=== PATIENT | female | born 1980 | race Caucasian/White ===

== ENCOUNTER 2017-08-22 05:22 | Emergency (ER) | payer OTHER ==
[2017-08-22 06:04] LABS: #Basophils 0.1 thou/uL (0.0-0.2); #Eosinphils 0.7 thou/uL (0.0-0.7); #Lymphocytes 2.2 thou/uL (1.20-3.40); #Monocytes 0.6 thou/uL (0.11-0.59); #Neutrophils 4.5 thou/uL (1.40-6.50); %Basophils 0.8 % (0.0-1.0); %Eosinophils 9.2 % (0.0-10.0); %Lymphocytes 27.7 % (21.0-51.0); %Monocytes 7.1 % (0.0-10.0); Hematocrit 36.1 % (36.0-47.0); Mean Platelet Volume 7.3 fL (7.4-10.4); White Blood Cell (WBC) Count 8.1 thou/uL (4.8-10.8)
[2017-08-22 06:23] LABS: Anion Gap 10 mmol/L (10-20); BUN (Urea Nitrogen) 16 mg/dL (7.0-18.7); Calc. Creatinine Clearance 0 mL/min (70-130); Calcium 9.3 mg/dL (7.8-10.44); Carbon Dioxide 26 mmol/L (22-29); Estimated GFR-MDRD 90
[2017-08-22 06:32] LABS: Chloride 107 mmol/L (98-107)
== END 2017-08-22 07:33 | disposition home or self-care (01) ==
LOC: ERS 05:22
DX: T81.31XA Disruption of external operation (surgical) wound, not elsewhere classified, initial encounter (principal); E03.9 Hypothyroidism, unspecified; I10 Essential (primary) hypertension; F42.9 Obsessive-compulsive disorder, unspecified; F17.210 Nicotine dependence, cigarettes, uncomplicated; Z79.891 Long term (current) use of opiate analgesic; Z79.899 Other long term (current) drug therapy
CPT/HCPCS: 36415; 80048; 85025; 86850; 86900; 86901

== ENCOUNTER 2017-08-22 15:14 | Emergency (ER) | payer OTHER | END 2017-08-22 17:13 | disposition home or self-care (01) | LOC: ERS 15:14 | DX: T81.31XA Disruption of external operation (surgical) wound, not elsewhere classified, initial encounter (principal); I34.1 Nonrheumatic mitral (valve) prolapse; I10 Essential (primary) hypertension; E03.9 Hypothyroidism, unspecified; F42.9 Obsessive-compulsive disorder, unspecified; F17.210 Nicotine dependence, cigarettes, uncomplicated | CPT/HCPCS: 36415; 80048; 85025; 86850; 86900; 86901; 87070; 87205; 99283; 99406 ==

== ENCOUNTER 2017-08-24 09:45 | Emergency (ER) | payer OTHER ==
[2017-08-24 10:42] LABS: #Eosinphils 0.2 thou/uL (0.0-0.7); #Lymphocytes 0.5 thou/uL (1.20-3.40); #Monocytes 0.4 thou/uL (0.11-0.59); %Basophils 0.2 % (0.0-1.0); %Eosinophils 1.6 % (0.0-10.0); %Lymphocytes 3.8 % (21.0-51.0); %Monocytes 3.1 % (0.0-10.0); Hematocrit 37.2 % (36.0-47.0); Mean Platelet Volume 6.7 fL (7.4-10.4); Red Blood Cell (RBC) Count 3.86 mill/uL (4.20-5.40); White Blood Cell (WBC) Count 14.2 thou/uL (4.8-10.8)
[2017-08-24 10:57] LABS: Lactic Acid - Sepsis 1.2 mmol/L (0.5-2.2)
[2017-08-24 11:03] LABS: ALT (SGPT) 14 U/L (8-55); AST (SGOT) 13 U/L (5-34); Alkaline Phosphatase 64 U/L (40-150); Anion Gap 11 mmol/L (10-20); BUN (Urea Nitrogen) 14 mg/dL (7.0-18.7); Bilirubin, Total 0.5 mg/dL (0.2-1.2); Calc. Creatinine Clearance 0 mL/min (70-130); Calcium 9.1 mg/dL (7.8-10.44); Carbon Dioxide 23 mmol/L (22-29); Chloride 104 mmol/L (98-107); Estimated GFR-MDRD 84; Globulin 2.6 g/dL (2.4-3.5); Protein, Total 6.9 g/dL (6.0-8.3)
--- NOTE | 2017-08-24 11:35 | RAD ---
PORTABLE CHEST 1 VIEW: Date: 08/24/17 Time: 1126 hours HISTORY: wound evaluation, fever. FINDINGS: The heart size is normal. The lungs are expanded and clear. Bony thorax unremarkable. IMPRESSION: Normal exam. POS: C
[2017-08-24] MEDS ORDERED: Acetaminophen 500 MG TAB ONE (11:59)
[2017-08-24 12:15] LABS: Bilirubin Negative (Negative); Blood, Urine Negative (Negative); Glucose, Urine (Dipstick) Negative (Negative); Ketone, Urine Negative (Negative); Nitrite Negative (Negative); Protein, Urine (Dipstick) Negative (Neg-Trace); Urobilinogen 0.2 mg/dL (0.2-1.0)
== END 2017-08-24 14:43 | disposition home or self-care (01) ==
LOC: ERS 09:45
DX: B34.9 Viral infection, unspecified (principal)
CPT/HCPCS: 71010; 80053; 81003; 83605; 85025; 87040; 87070; 87077; 87086; 87186; 87205; 93005; 96360

== ENCOUNTER 2017-09-09 10:32 | Outpatient (CLI) | payer OTHER ==
--- NOTE | 2017-09-09 18:07 | HP ---
DATE OF SERVICE: 09/09/2017 HISTORY OF PRESENT ILLNESS: Ms. Kathryn Tovar is a very pleasant 37-year-old who [facility] evaluation of a wound of the right axilla subsequent to pectoralis minor tenotom y for treatment of thoracic outlet syndrome. The patient states she underwent the preceding procedur e by Dr. Wood in [place], [place]. The patient states that the wound edges at the time of surgery were approximated with surgical glue. She states that on 08/22/2017, she noted rupture of the surgical i ncision with the copious drainage of serosanguineous fluid. She states that at this time a dehiscenc e of the surgical incision was noted. The patient has been performing dressing changes of iodoform g auze for her right axillary wound. Today, the patient complains of irritation of the periwound from drainage associated with her wound. The patient states that 2 days after [place] of last year, she was admitted to [facility] where she remained for 3-4 days. She states that at this time MRSA was c ultured from her wound. PAST MEDICAL HISTORY: 1. Mitral valve prolapse. 2. Osteoarthritis. 3. Dwayne's thyroiditis. 4. Ovarian cystic lesion. 5. Hiatal hernia. PAST SURGICAL HISTORY: 1. x2. 2. Lysis of adhesions. 3. Hysterectomy with right salpingo-oophorectomy and left fallopian tube resection. 4. Breast implant bilaterally and subsequent removal, including "chest wall scraping" requiring tota l of 7 surgical procedures. 5. Sinus surgery x2. 6. Toe surgery. 7. Pectoralis minor tenotomy. MEDICATIONS: 1. Fioricet. 2. Soma. 3. Adderall. 4. Florinef. 5. Metoprolol XL. 6. Zofran. 7. Zantac. 8. Topamax. 9. Ambien. 10. Tramadol. 11. Gabapentin. ALLERGIES: BACTRIM STEROIDS, DICYCLOMINE, LEXAPRO, GENTAMICIN, TETRACYCLINES, TRIPTANS and PAPER TAP E. SOCIAL HISTORY: Significant for tobacco use of less than 1 pack of cigarettes per day for the past y ear. The patient denies any history of ETOH use. FAMILY HISTORY: Significant for diabetes mellitus. The patient states that her maternal aunt was di agnosed with diabetes mellitus. PHYSICAL EXAMINATION: VITAL SIGNS: Temperature 98.1, pulse 77, respirations 16, blood pressure 172/96. GENERAL: A 37-year-old female sitting on chair in examination room in no acute distress. HEENT: Normocephalic, atraumatic. NECK: No nuchal rigidity. CHEST: Clear to auscultation. A right axillary wound is present which measures approximately 1.0 x 1.3 cm. The wound is granulating. No purulent drainage is associated with the wound. Irritation of the skin of the periwound is noted. No maceration of the skin of the periwound is noted. CARDIAC: Regular rate and rhythm. ABDOMEN: Soft. EXTREMITIES: No clubbing or cyanosis. NEUROLOGIC: Grossly nonfocal. ASSESSMENT AND PLAN: 1. Right axillary wound as described above. Dressing changes of iodoform gauze will be continued. The patient has been instructed to apply Calmoseptine to the periwound at the time of dressing change s. No antibiotics will be prescribed today based upon the appearance of the wound. The wound is hea ling without complications or any signs of infection. The patient has been reassured and Ms. Tovar will be discharged from clinic today with followup on a p.r.n. basis. 2. Mitral valve prolapse. 3. Osteoarthritis. 4. Dwayne's thyroiditis. 5. Ovarian cystic lesion. 6. Hiatal hernia.
== END 2017-09-09 10:33 | disposition home or self-care (01) ==
LOC: WCC 10:32
PROVIDERS: ATTEND Family Medicine
DX: S41.101A Unspecified open wound of right upper arm, initial encounter (principal); I34.1 Nonrheumatic mitral (valve) prolapse; M19.90 Unspecified osteoarthritis, unspecified site; E06.3 Autoimmune thyroiditis; N83.209 Unspecified ovarian cyst, unspecified side; K44.9 Diaphragmatic hernia without obstruction or gangrene; Z90.710 Acquired absence of both cervix and uterus; Z90.721 Acquired absence of ovaries, unilateral; Z98.82 Breast implant status; Z98.890 Other specified postprocedural states
CPT/HCPCS: 97602; 99203; G0463